=== PATIENT | female | born 1995 | race Hispanic/Latino ===

== ENCOUNTER 2018-06-13 21:45 | Emergency (ER) | payer BC, MEDICAID ==
[2018-06-13 22:45] LABS: BASOPHILS % (AUTO) 1.2 % (0.0-5.0); EOSINOPHILS % (AUTO) 1.4 % (0.0-8.0); LYMPHOCYTES % (AUTO) 29.5 % (21.0-51.0); MEAN CORPUSCULAR VOLUME 88.2 fL (80-100); MONOCYTES % (AUTO) 6.7 % (3.0-13.0); NEUTROPHILS % (AUTO) 61.2 % (40.0-77.0); PLATELET COUNT (AUTO) 303 K/uL (130-400); RED BLOOD CELL COUNT(AUTO) 4.64 MIL/uL (4.00-5.50); RED CELL DISTRIBUTION WIDTH 12.4 % (11.0-15.5); WHITE BLOOD COUNT (AUTO) 8.9 K/uL (4.8-10.8)
== END 2018-06-14 00:39 | disposition home or self-care (01) ==
LOC: EDH 21:45
DX: O20.0 Threatened abortion (principal); Z3A.01 Less than 8 weeks gestation of pregnancy
CPT/HCPCS: 36415; 76817; 84702; 85025; 86900; 86901

== ENCOUNTER 2022-03-08 11:42 | Emergency (ER) | payer BC, MEDICAID, OTHER ==
[~2022-03-08] VITALS: Ht 152.4 cm; Wt 66.7 kg
[2022-03-08] MEDS ORDERED: 0.9%NACL 1000ML 1,000 ML IV ONE (12:00)
[2022-03-08] MEDS ORDERED: ONDANSETRON 4MG INJ IVP SCH (12:00)
[2022-03-08] MEDS ORDERED: ONDANSETRON 4MG INJ ONE (12:11)
[2022-03-08 12:14] LABS: BASOPHILS % (AUTO) 0.3 % (0.0-5.0); HEMATOCRIT 40.6 % (36-48); LYMPHOCYTES % (AUTO) 14.2 % (21.0-51.0); MEAN CORPUSCULAR HEMOGLOBIN 29.9 pg (27.0-33.0); MEAN CORPUSCULAR VOLUME 88.1 fL (79-99); MONOCYTES % (AUTO) 5.1 % (3.0-13.0); NEUTROPHILS % (AUTO) 79.1 % (40.0-77.0); PLATELET COUNT (AUTO) 300 K/uL (130-400); RED BLOOD CELL COUNT(AUTO) 4.61 MIL/uL (4.00-5.50); RED CELL DISTRIBUTION WIDTH 11.7 % (11.0-15.5); WHITE BLOOD COUNT (AUTO) 10.4 K/uL (4.8-10.8)
[2022-03-08 12:30] LABS: APPEARANCE,URINE CLEAR (CLEAR); BILIRUBIN,URINE NEGATIVE (NEGATIVE); COLOR,URINE LIGHT-YELLOW (YELLOW); GLUCOSE, URINE (UA) NEGATIVE (NEGATIVE); KETONES,URINE NEGATIVE (NEGATIVE); LEUKOCYTE ESTERASE ,URINE NEGATIVE Leu/uL (NEGATIVE); NITRATE,URINE NEGATIVE (NEGATIVE); PH,URINE 5.5 (5.0-8.0); PROTEIN,URINE NEGATIVE (NEGATIVE); UROBILINOGEN,URINE 0.2 mg/dL (0.2-1.0)
[2022-03-08 12:37] LABS: CREATININE 0.5 mg/dL (0.5-1.5); POTASSIUM 3.6 mmol/L (3.5-5.1)
[2022-03-08 12:44] LABS: BACTERIA,URINE RARE /HPF (None Seen); MUCUS,URINE RARE LPF (None Seen); RBC,URINE 0-1 /HPF (0-1); SQUAMOUS EPITHELIAL CELL,UR RARE /HPF (0-2)
[2022-03-08 13:10] LABS: ALBUMIN 3.5 g/dL (3.5-5.0); TOTAL PROTEIN, SERUM 7.9 g/dL (6.0-8.3)
[2022-03-08 13:11] LABS: HCG,QUALITATIVE URINE POSITIVE (NEGATIVE)
[2022-03-08 14:17] VITALS: BP 122/74
== END 2022-03-08 14:24 | disposition home or self-care (01) ==
LOC: EDH 11:42
DX: O26.891 Other specified pregnancy related conditions, first trimester (principal); S00.83XA Contusion of other part of head, initial encounter; R55 Syncope and collapse; E86.0 Dehydration; Z3A.08 8 weeks gestation of pregnancy; W18.30XA Fall on same level, unspecified, initial encounter; Y93.89 Activity, other specified; Y92.89 Other specified places as the place of occurrence of the external cause; Y99.8 Other external cause status
CPT/HCPCS: 99285; 96374; 76801; 96361; 84484; 80053; 84702; 85025; 86900; 86901; 81001; 81025; 36415; 93005; J7030; J2405

== ENCOUNTER 2022-06-02 08:21 | Observation (INO) | payer MEDICAID ==
[~2022-06-02] VITALS: Ht 152.4 cm; Wt 67.1 kg
[2022-06-02 08:26] VITALS: BP 112/71
[2022-06-02 09:14] LABS: APPEARANCE,URINE CLEAR (CLEAR); BILIRUBIN,URINE NEGATIVE (NEGATIVE); COLOR,URINE YELLOW (YELLOW); GLUCOSE, URINE (UA) 150 mg/dL (NEGATIVE); KETONES,URINE 5 mg/dL (NEGATIVE); LEUKOCYTE ESTERASE ,URINE 250 Leu/uL (NEGATIVE); NITRATE,URINE NEGATIVE (NEGATIVE); OCCULT BLOOD,URINE NEGATIVE (NEGATIVE); PROTEIN,URINE 20 mg/dL (NEGATIVE); UROBILINOGEN,URINE 0.2 mg/dL (0.2-1.0)
[2022-06-02 09:20] LABS: SQUAMOUS EPITHELIAL CELL,UR MOD /HPF (0-2)
[2022-06-02 09:29] LABS: BACTERIA,URINE Moderate /HPF (None Seen); MUCUS,URINE Moderate LPF (None Seen)
== END 2022-06-02 12:20 | disposition home or self-care (01) ==
LOC: EDH 08:21 → LDH 08:22 → UNDOADMOB 08:30 → LDH 08:30
PROVIDERS: ADMIT Obstetrics & Gynecology; ATTEND Obstetrics & Gynecology
DX: O99.352 Diseases of the nervous system complicating pregnancy, second trimester (principal); R56.9 Unspecified convulsions; Z3A.20 20 weeks gestation of pregnancy; Z79.899 Other long term (current) drug therapy
CPT/HCPCS: 59025; 87088; 81001; 76805; G0378 ×4; G0379

== ENCOUNTER 2025-01-31 06:27 | Emergency (ER) | payer BC, MEDICAID ==
[~2025-01-31] VITALS: Ht 152.4 cm; Wt 65.8 kg
--- NOTE | 2025-01-31 06:51 | ERN ---
General Chief Complaint: Multiple Complaints Stated Complaint: SEIZURE, CHEST HEAVINESS Time Seen by MD: 06:33 Source: patient, family History of Present Illness Initial Comments Patient is a 29-year-old female with a known seizure disorder on Keppra and lamotrigine. Family noted she had a seizure 2 hours ago where she became stiff and immobile for a brief period followed by a postictal interval where she had raspy breathing. Patient was brought to the emergency room for evaluation for possible causes of the seizure and also feeling of chest pressure that the patient is currently experiencing. Allergies: Coded Allergies: No Known Allergies (Unverified Allergy, Unknown, 03/08/22) Home Meds No Active Prescriptions or Reported Meds Past Medical History Past Medical History: Seizure Past Surgical History: Other Surgical History Other: EYES Female( History) : 3 Para: 3 Aborts: 0 Constitutional: (-) chills, (-) diaphoresis, (-) fever, (-) malaise, (-) weakness, (-) other documentation EENTM: (-) eye pain, (-) blurred vision, (-) tearing, (-) double vision, (-) ear pain, (-) ear discharge, (-) nose pain, (-) nose congestion, (-) throat pain, (-) Throat swelling, (-) mouth pain, (-) tooth pain, (-) mouth swelling, (-) other documentation Respiratory: (-) cough, (-) orthopnea, (-) short of breath, (-) stridor, (-) wheezing, (-) other documentation Cardiovascular: (-) chest pain, (-) edema, (-) palpitations, (-) syncope, (-) dyspnea on exertion, (-) other documentation Gastrointestinal/Abdominal: (-) nausea, (-) vomiting, (-) diarrhea, (-) abdominal pain, (-) abdominal distention, (-) constipation, (-) rectal bleeding, (-) dark stool/melena, (-) other documentation Genitourinary: (-) vaginal discharge, (-) vaginal bleeding, (-) dysuria, (-) frequency, (-) hematuria, (-) pain, (-) other documentation Musculoskeletal: (+) Neck pain Physical Exam General Appearance: (+) mild distress Orientation: (+) alert, (+) oriented x 3 Head/Face Trauma: No Eye: bilateral eye normal inspection, bilateral eye PERRL, bilateral eye EOMI Ear, Nose, Throat: (+) hearing grossly normal, (+) normal ENT inspection, (+) moist mucous membraine Neck: (+) normal inspection, (+) supple, (+) full range of motion Respiratory: (+) chest non-tender, (+) lungs clear, (+) well ventilated Heart: (+) regular, (+) no gallop Vascular: (+) no edema, (+) normal peripheral pulse Gastrointestinal: (+) soft, (+) non-tender, (+) bowel sound present Results Laboratory and Microbiology Lab and Micro Result Laboratory Tests Test 01/31/25 06:58 01/31/25 07:18 White Blood Count 9.7 K/uL (4.8-10.8) Red Blood Count 4.55 MIL/uL (4.00-5.50) Hemoglobin 13.7 g/dL (12.0-16.0) Hematocrit 40.2 % (36-48) Mean Corpuscular Volume 88.4 fL (79-99) Mean Corpuscular Hemoglobin 30.1 pg (27.0-33.0) Mean Corpuscular Hemoglobin Concent 34.1 g/dL (32.0-36.0) Red Cell Distribution Width 11.7 % (11.0-15.5) Platelet Count 313 K/uL (130-400) Mean Platelet Volume 10.2 fL (7.5-10.5) Immature Granulocyte % (Auto) 0.3 % (0-1) Neutrophils (%) (Auto) 78.6 % (40.0-77.0) H Lymphocytes (%) (Auto) 16.1 % (21.0-51.0) L Monocytes (%) (Auto) 4.2 % (3.0-13.0) Eosinophils (%) (Auto) 0.4 % (0.0-8.0) Basophils (%) (Auto) 0.4 % (0.0-5.0) Neutrophils # (Auto) 7.6 K/uL (1.8-7.7) Lymphocytes # (Auto) 1.6 K/uL (1.0-4.8) Monocytes # (Auto) 0.4 K/uL (0.1-1.0) Eosinophils # (Auto) 0.04 K/uL (0.00-0.70) Basophils # (Auto) 0.04 K/uL (0.00-0.20) Absolute Immature Granulocyte (auto 0.03 K/uL (0-1) Nucleated Red Blood Cells 0.0 % (0.0-0.19) Sodium Level 139 mmol/L (136-145) Potassium Level 3.9 mmol/L (3.5-5.1) Chloride Level 104 mmol/L (101-111) Carbon Dioxide Level 27 mmol/L (21-32) Blood Urea Nitrogen 10 mg/dL (7-18) Creatinine 0.5 mg/dL (0.5-1.0) Glomerular Filtration Rate Calc 132 mL/min (>90) Random Glucose 100 mg/dL (70-105) Total Calcium 8.6 mg/dL (8.5-10.1) Total Creatine Kinase 85 U/L (21-232) # Troponin I High Sensitivity < 4 ng/L (4-50) L Urine Color LIGHT-YELLOW (YELLOW) Urine Appearance CLEAR (CLEAR) Urine pH 6.5 (5.0-8.0) Urine Specific [place] 1.014 (1.001-1.031) Urine Protein NEGATIVE mg/dL (NEGATIVE) Urine Glucose (UA) NEGATIVE mg/dL (NEGATIVE) Urine Ketones NEGATIVE mg/dL (NEGATIVE) Urine Occult Blood NEGATIVE (NEGATIVE) Urine Nitrate NEGATIVE (NEGATIVE) Urine Bilirubin NEGATIVE mg/dL (NEGATIVE) Urine Urobilinogen 0.2 mg/dL (0.2-1.0) Urine Leukocyte Esterase NEGATIVE [place]/uL Urine HCG, Qualitative NEGATIVE (NEGATIVE) MDM MDM: Differential diagnosis: Breakthrough tonic seizure, electrolyte abnormalities, infection, subtherapeutic medication levels, muscle strain Rationale: Tests considered and ordered secondary to shared decision making include: Previous outside records reviewed: Old ER visits. Risk of complication and/or morbidity or mortality of patient management: None Medications-Per medication reconciliation Need for hospitalization: Patient does meet criteria for hospitalization. Need for emergency major/minor surgery: No There are no social concerns with this patient. Prescription drug management Prescriptions will include symptomatic care Patient's prior external medical records from other ER visits were reviewed by me as indicated. Prior testing and results from previous visits were reviewed. Prior tests were taken into account with medical decision making and resource utilization, independent historian/historians were used to obtain complete medical history. I independently interpreted the test that were performed, results were reviewed by me and considered findings on radiology if ordered. ED Course Orders Procedure Category Date Status Time 12 Lead Ekg Tracing- EKG 01/31/25 Complete Technical 06:44 Basic Metabolic Panel LAB 01/31/25 Complete 06:44 Cbc With Differential LAB 01/31/25 Complete 06:44 ,Urine Test LAB 01/31/25 Complete 06:44 Urinalysis Profile LAB 01/31/25 Complete 06:44 Troponin I High LAB 01/31/25 Complete Sensitivity 06:44 Lamotrigine LAB 01/31/25 In Process (Lamictal) Level 06:44 Keppra LAB 01/31/25 In Process (Levetiracetam) Level 06:44 Creatine Kinase, Total LAB 01/31/25 Complete 06:44 Vital Signs Date Time Temp Pulse Resp B/P (MAP) Pulse Ox O2 Delivery O2 Flow Rate FiO2 01/31/25 07:28 98.2 78 15 117/63 98 Room Air* 0 21 01/31/25 06:28 98.1 83 16 146/83 98 Room Air DX & DISP Disposition: Discharge Departure Impression: Primary Impression: Complex partial seizures Condition: Stable Scripts No Active Prescriptions or Reported Meds Referrals: SELF,REFERRAL (PCP) Patient is seen and evaluated by me. Has been stable throughout her whole course. Labs reassuring. We will discharge home at this time. Patient has follow up with the PCP later this morning. Advised on concerning signs and symptoms for which to return in the emergency room. Follow up with the PCP. ORION ANDREWS MD Jan 31, 2025 06:51 HELENA TSE MD Jan 31, 2025 09:27
--- NOTE | 2025-01-31 06:55 | EKG ---
[facility] Test Date: 2025-01-31 Test Time: 06:50:08 Pat Name: SURJIT CARL Department: ED Room: Gender: F [employer]ester: 89 : 1995 Requested By: ORION ANDREWS Order Number: [id number] Reading MD: Florencio Echeverria Measurements Intervals [place] Rate: 78 P: -2 NM: 168 QRS: -13 QRSD: 81 T: 35 QT: 388 QTc: 443 Interpretive Statements Sinus rhythm Low voltage, precordial leads Compared to ECG 03/13/2022 11:44:20 No significant changes Electronically Signed On 01-31-2025 10:57:34 CDT by Florencio Echeverria Please click the below link to view image of tracing.
[2025-01-31 07:07] LABS: IMMATURE GRANULOCYTE ABSOLUTE 0.03 K/uL (0-1); NUCLEATED RED BLOOD CELLS 0.0 % (0.0-0.19); PLATELET COUNT (AUTO) 313 K/uL (130-400); RED BLOOD CELL COUNT(AUTO) 4.55 MIL/uL (4.00-5.50); RED CELL DISTRIBUTION WIDTH 11.7 % (11.0-15.5); WHITE BLOOD COUNT (AUTO) 9.7 K/uL (4.8-10.8)
[2025-01-31 07:24] LABS: CREATINE KINASE, TOTAL 85.0 U/L (21-232); CREATININE 0.5 mg/dL (0.5-1.0); GLOMERULAR FILTR. RATE CALC 132.0 mL/min (>90); GLUCOSE,RANDOM 100.0 mg/dL (70-105); SODIUM SERUM 139.0 mmol/L (136-145); UREA NITROGEN, BLOOD 10.0 mg/dL (7-18)
[2025-01-31 08:00] LABS: APPEARANCE,URINE CLEAR (CLEAR); GLUCOSE, URINE (UA) NEGATIVE (NEGATIVE); LEUKOCYTE ESTERASE ,URINE NEGATIVE Leu/uL (NEGATIVE); NITRATE,URINE NEGATIVE (NEGATIVE); OCCULT BLOOD,URINE NEGATIVE (NEGATIVE)
[2025-01-31 08:03] LABS: ADD UA MICROSCOPIC NO
[2025-01-31 08:08] LABS: HCG,QUALITATIVE URINE NEGATIVE (NEGATIVE)
[2025-01-31 09:39] VITALS: BP 111/75; PULSE 70; RESP 16; TEMP 98.2; O2SAT 98
== END 2025-01-31 09:40 | disposition home or self-care (01) ==
LOC: EDH 06:27
DX: G40.209 Localization-related (focal) (partial) symptomatic epilepsy and epileptic syndromes with complex partial seizures, not intractable, without status epilepticus (principal)
CPT/HCPCS: 36415; 80048; 80177; 81003; 81025; 82542; 82550; 84484; 85025; 93005; 99284